=== PATIENT | female | born 1955 | race Caucasian/White ===

== ENCOUNTER → 2019-07-24 10:33 | Outpatient (BNVA) | payer OTHER, SELFPAY | PROVIDERS: Family Provider Family Medicine; PCP Family Medicine; Visit Provider Family Medicine | DX: E11.65 Type 2 diabetes mellitus with hyperglycemia (principal); E03.9 Hypothyroidism, unspecified; Z79.4 Long term (current) use of insulin; F32.9 Major depressive disorder, single episode, unspecified | CPT/HCPCS: 36415; 80053; 80061; 83036; 84439; 84443; 85025 ==

== ENCOUNTER → 2019-11-12 09:30 | Outpatient (BNVA) | payer OTHER, SELFPAY | PROVIDERS: Family Provider Family Medicine; PCP Family Medicine; Visit Provider Family Medicine | DX: E11.9 Type 2 diabetes mellitus without complications (principal) | CPT/HCPCS: 80061; 83036 ==

== ENCOUNTER → 2020-03-31 13:55 | Outpatient (BNVA) | payer OTHER, SELFPAY | PROVIDERS: Family Provider Family Medicine; PCP Family Medicine; Visit Provider Family Medicine | DX: E03.9 Hypothyroidism, unspecified (principal); E11.9 Type 2 diabetes mellitus without complications; E78.5 Hyperlipidemia, unspecified | CPT/HCPCS: 36415; 80053; 80061; 83036; 84439; 84443; 85025 ==

== ENCOUNTER → 2020-10-17 14:03 | Outpatient (BNVA) | payer OTHER, SELFPAY | PROVIDERS: Family Provider Family Medicine; PCP Family Medicine; Visit Provider Nurse Practitioner Family | DX: E11.65 Type 2 diabetes mellitus with hyperglycemia (principal); R30.0 Dysuria | CPT/HCPCS: 81000; 83036 ==

== ENCOUNTER → 2021-01-13 11:33 | Outpatient (BNVA) | payer MEDICARE, SELFPAY | PROVIDERS: Family Provider Family Medicine; PCP Family Medicine; Visit Provider Nurse Practitioner Family | DX: R30.0 Dysuria (principal); R10.9 Unspecified abdominal pain; Z12.11 Encounter for screening for malignant neoplasm of colon | CPT/HCPCS: 80053; 81000; 85025 ==

== ENCOUNTER → 2021-02-10 08:48 | Outpatient (BNVA) | payer MEDICARE, SELFPAY | PROVIDERS: Family Provider Family Medicine; PCP Family Medicine; Visit Provider Internal Medicine | DX: Z80.0 Family history of malignant neoplasm of digestive organs (principal); Z20.822 Contact with and (suspected) exposure to COVID-19 | CPT/HCPCS: 87635 ==

== ENCOUNTER 2021-02-16 08:36 | Day surgery (SDC) | payer MEDICARE, SELFPAY ==
[2021-02-12 14:19] VITALS: BMI 35.4
[2021-02-16 09:15] VITALS: BP 144/81; PULSE 79; RESP 18; TEMP 36.3; O2SAT 94
[2021-02-16] MEDS: sodium chloride 0.9% 1,000 ML 30 ML IV (09:36)
--- NOTE | 2021-02-16 09:40 | W.PM.OPSFHP ---
Same Day Surgery H&P Indication for Procedure/HPI DATE OF PROCEDURE: February 16, 2021 CHIEF COMPLAINT/INDICATIONFOR SURGICAL PROCEDURE: Screening PREOP DIAGNOSIS: FH colon cancer PLANNED PROCEDRUE: Operation Date: 02/16/21 09:30 Proposed Procedures p Colonoscopy g0105 z80.0(Not Applicable) - Paul Funes MD Medications/Allergies* Home Medications Medication Instructions Recorded Confirmed Type clobetasol 0.05 % topical cream 1 applic TOPICAL BID 07/23/19 02/12/21 History atenolol 25 mg PO DAILY 02/12/21 02/16/21 History citalopram [Celexa] 40 mg PO DAILY 02/12/21 02/12/21 History fluconazole [Diflucan] 150 mg PO .COMPLEX PRN 02/12/21 02/12/21 History glimepiride 4 mg PO DAILY 02/12/21 02/12/21 History lisinopril-hydrochlorothiazide 1 tab PO DAILY 02/12/21 02/12/21 History metformin See Rx Instructions .ROUTE .COMPLEX 02/12/21 02/16/21 History Allergies/Adverse Reactions Allergy/AdvReac Type Severity Reaction Status Date / Time Sbrxqeb-Zfq-Ylh Reductase AdvReac Severe ADR-Muscle Verified 02/12/21 14:21 Inhibitor Pain Current Medications: Generic Name Dose Route Start Last Admin Trade Name Freq PRN Reason Stop Dose Admin Sodium Chloride 1,000 mls @ 30 mls/hr 02/16/21 08:45 02/16/21 09:36 Sodium Chloride 0.9% IV 02/17/21 08:44 30 mls/hr .Q24H GUY Administration Pertinent History/Comorbid Conditions* Medical History (Updated 02/05/21 @ 14:30 by Paul Funes MD) Depressed Diabetes Hypothyroid Family History (Updated 03/31/20 @ 08:59 by Roz Xavier LPN) Mother CAD (coronary artery disease) Mother Son Cancer Mother Social History Smoking and tobacco status: former smoker Quit status (tobacco): has quit using tobacco Alcohol intake: current Alcohol intake frequency: holidays/special occasions only Pertinent Exam Findings alert, oriented x 3, clear to auscultation bilaterally, regular rate & rhythm, operative site marked and procedure specific exam findings Recommendations Surgery/Procedure today Coding Level of Care Code Acute Emergency Room Nurse for Margaretg Demetris
[2021-02-16 09:42] LABS: Glucose Point of Care 305 mg/dL (70-110)
--- NOTE | 2021-02-16 10:03 | ANES.PREANE2 ---
Pre-Anesthetic Assessment Pre-Anesthetic Assessment: Height/Weight: Height 1.6 m Weight 90.718 kg Temp Pulse Resp BP Pulse Ox 97.4 F L 79 18 144/81 94 02/16/21 09:15 02/16/21 09:15 02/16/21 09:15 02/16/21 09:15 02/16/21 09:15 Preop Diagnosis: FH colon cancer Proposed Procedure: Operation Date: 02/16/21 09:30 Proposed Procedures p Colonoscopy g0105 z80.0(Not Applicable) - Paul Funes MD Was Beta Warren taken within 24 hours: Yes Was Clonidine taken within 24 hours: N/A Last intake: Intake Last Liquid Date 02/15/21 Last Liquid Time 21:00 Last Solid Date 02/14/21 Last Solid Time 21:00 Social: Social History: No alcohol and No tobacco Exam: Pre-Anes Outpt Exam: alert, oriented x 3, clear to auscultation bilaterally and regular rate & rhythm Airway: Submandibular: WNL Cervical ROM: WNL MP: 2 Dentition: Full CV/HEM: CV/HEM: HTN Metabolic: Metabolic: DM and Thyroid Anesthetic Plan: ASA status: 3 Anesthesia: MAC Risk of > 500 ml blood loss (7ml/kg in children): No Meds/Allergies Current Medications: Current Medications Generic Name Dose Route Start Last Admin Trade Name Freq PRN Reason Stop Dose Admin Sodium Chloride 1,000 mls @ 30 ml s/hr 02/16/21 08:45 02/16/21 09:36 Sodium Chloride 0.9% IV 02/17/21 08:44 30 mls/hr .Q24H GUY Administration PFSH Anesthesia PFSH: Medical History (Updated 02/05/21 @ 14:30 by Paul Funes MD) Depressed Diabetes Hypothyroid Family History Mother Cancer CAD (coronary artery disease) Son CAD (coronary artery disease) Social History Smoking and tobacco status: former smoker Quit status (tobacco): has quit using tobacco Alcohol intake: current Alcohol intake frequency: holidays/special occasions only Data Anesthesia Other Labs: Laboratory Results - last 48 hr 02/16/21 09:35 POC Glucose 305 H Cardiac Studies: No Data to Display
[2021-02-16 10:18] VITALS: BP 110/60; PULSE 74; RESP 16; TEMP 36.4; O2SAT 92
[2021-02-16 10:26] VITALS: BP 114/63; PULSE 76; RESP 18; O2SAT 93
--- NOTE | 2021-02-16 11:15 | ANE.PACU2 ---
Documented by User: Andreia Gilliam CRNA 02/16/21 11:16 Inpatient post-anesthesia follow up: Airway intact: Yes Vital signs: Temperature 97.5 F Pulse Rate 76 Respiratory Rate 18 Blood Pressure 114/63 Pulse Oximetry 93 Oxygen Delivery Me thod Room Air Oxygen Flow Rate 3 Fraction of Inspir ed Oxygen Hydration adequate: Yes Nausea and vomiting: No Mental status: Baseline
--- NOTE | 2021-02-16 12:56 | ANE.PACU2 ---
Inpatient post-anesthesia follow up: Airway intact: Yes Vital signs: Temperature 97.5 F Pulse Rate 76 Respiratory Rate 18 Blood Pressure 114/63 Pulse Oximetry 93 Oxygen Delivery Me thod Room Air Oxygen Flow Rate 3 Fraction of Inspir ed Oxygen Hydration adequate: Yes Nausea and vomiting: No Pain level: 1 Mental status: Baseline
== END 2021-02-16 10:45 | disposition home or self-care (01) ==
PROVIDERS: PCP Family Medicine; Visit Provider Internal Medicine
PROC: 0DJD8ZZ Inspection of Lower Intestinal Tract, Via Natural or Artificial Opening Endoscopic (ICD-10-PCS; CPT 45378; principal; 2021-02-16 09:30)
DX: Z12.11 Encounter for screening for malignant neoplasm of colon (principal); Z80.0 Family history of malignant neoplasm of digestive organs; K57.30 Diverticulosis of large intestine without perforation or abscess without bleeding; E11.9 Type 2 diabetes mellitus without complications; Z79.84 Long term (current) use of oral hypoglycemic drugs; E03.9 Hypothyroidism, unspecified; Z82.49 Family history of ischemic heart disease and other diseases of the circulatory system; Z87.891 Personal history of nicotine dependence; I10 Essential (primary) hypertension
CPT/HCPCS: 36416; 45378; 82962; 96360; J2704; J7030

== ENCOUNTER → 2021-03-26 13:31 | Outpatient (BNVA) | payer MEDICARE, SELFPAY | PROVIDERS: PCP Family Medicine; Visit Provider Obstetrics & Gynecology | DX: Z01.419 Encounter for gynecological examination (general) (routine) without abnormal findings (principal) | CPT/HCPCS: 88175 ==

== ENCOUNTER → 2021-04-13 11:17 | Outpatient (BNVA) | payer MEDICARE, SELFPAY | PROVIDERS: PCP Family Medicine; Visit Provider Obstetrics & Gynecology | DX: R87.811 Vaginal high risk human papillomavirus (HPV) DNA test positive (principal) | CPT/HCPCS: 88305 ==

== ENCOUNTER 2021-06-09 07:03 | Outpatient (CLI) | payer MEDICARE, SELFPAY ==
[2021-06-09 07:09] VITALS: BMI 37.0
--- NOTE | 2021-06-09 07:10 | NMCV_ITS ---
NM andrew perf SPECT r/s* [id number] Lizabeth Curry Age: 66 Gender: F : 1955 Exam Date: 06/09/2021 08:29 Ordering Phys: Krishna Anand M.D ([email or web address]) Technologist: MERE Hernandez Exam Location: [facility] Indications: CHEST PAIN STRESS TEST Please see separate stress test report [facility] for full findings IMAGE PROTOCOL Rest/Stress 1 Lexiscan Day Radiopharmaceutical Dose (mCi) Administration Site Administered by Rest: Tc-99m 10.6 IV MERE Hernandez Sestamibi Stress:Tc-99m 32.4 IV MERE Hernandez Sestamibi Rest: 09-Jun-2021 60 Discovery 630 Stress: 09-Jun-2021 30 Discovery 630 0.4mg Lexiscan. Images obtained in supine and prone position. SPECT RESULTS Technical Quality: Excellent Raw Data Analysis: Normal, Breast attenuation Image Corrections: No attenuation or motion correction applied Summed Stress Score: 1 Summed Rest Score: 2 Summed Difference Score: 1 PERFUSION FINDINGS There is a small in size partially reversible defect in the apical inferior wall. This likely represents small prior infarct with some shirley-infarct ischemia. FUNCTIONAL RESULTS (calculated via Gated SPECT) Stress Image LV EF (%): 77 Stress EDV (mL):90 TID: 1.26 Stress ESV (mL):21 FUNCTIONAL FINDINGS: There is normal left ventricular systolic function. IMPRESSIONS 1. Abnormal myocardial perfusion imaging with small sized, partially reversible perfusion defect of apical inferior wall. This is consistent with prior infarct with small area of shirley-infarct ischemia. 2. LV systolic function is normal. 3. Elevated TID ratio of 1.26 that could represent subendocardial ischemia Krishna Anand MD (Electronically Signed) Final Date: 11 June 2021 14:00 S
--- NOTE | 2021-06-09 07:10 | ECG_ITS ---
[facility] Test Date: 2021-06-09 Pat Name: Lizabeth Curry Department: Room: Gender: Female Civil Engineering Professional: : 1955 Requested By: Krishna Anand Order Number: [id number] Dylan MD: Krishna Anand M.D. Interpretive Statements NAME OF STUDY: LEXISCAN SESTAMIBI STRESS TEST INDICATION: [Chest Pain; Shortness of Breath] Procedure: At the baseline, the blood pressure was 154/78 mmHg with a heart rate of 65 bpm. The electrocardiogram showed normal sinus rhythm, normal axis with normal ST and T's. The Lexiscan was infused over a period of 20 seconds. A total of 0.4 mg of Lexiscan was infused. The stress phase was continued for a total of 5 minutes. Heart rate was at the end of stress phase was 85 bpm and blood pressure was not recorded. The EKG at the peak infusion revealed since normal sinus rhythm with no significant ST-T wave changes. Sestamibi was injected 20 seconds after the Lexiscan infusion. Blood pressure at the end of recovery phase was 164/78 mmHg with a heart rate of 79 bpm. Conclusion: 1. Normal EKG response to Lexiscan infusion 2. No Lexiscan induced chest pain or cardiac arrhythmia. 3. Normal blood pressure and heart rate response. 4. Sestamibi/sestamibi perfusion scan pending; see separate report. Electronically Signed On 07-04-2021 11:58:14 TRAVELING OPERATOR by Krishna Anand M.D. [id number]
[2021-06-09] MEDS: regadenoson 0.4 Mg/5 ml Syringe IVP (09:13)
[2021-06-09 09:37] VITALS: BP 164/78; PULSE 79
--- NOTE | 2021-06-09 11:45 | USCV_ITS ---
Lizabeth Curry Age: 66 Gender: F : 1955 Exam Date: 06/09/2021 10:36 Ordering Phys: Krishna Anand M.D ([email or web address]) Technologist: AMAURY Exam Location: [facility] [place] Indication: Chest pain BP: 128 / 64 HR: 66 Rhythm: Sinus Technical Quality: Adequate MEASUREMENTS (Male / Female) Normal Values 2D ECHO LV Diastolic Diameter PLAX 4.7 cm 4.2 - 5.9 / 3.9 - 5.3 cm LV Systolic Diameter PLAX 3.0 cm IVS Diastolic Thickness 1.0 cm 0.6 - 1.0 / 0.6 - 0.9 cm IVS Systolic Thickness 1.5 cm LVPW Diastolic Thickness 1.2 cm 0.6 - 1.0 / 0.6 - 0.9 cm LVPW Systolic Thickness 1.5 cm LVOT Diameter 2.0 cm LV Ejection Fraction 2D Teich 64.8 % LV Ejection Fraction MOD 2C 75.6 % LV Ejection Fraction 2C AL 75.3 % LA Diameter 3.1 cm LA Width 2.9 cm LA Height 4.4 cm RA Width 3.3 cm RA Height 3.6 cm Aorta at Sinotubular Diameter 2.4 cm M-MODE Aortic Annulus Diameter 3.3 cm LA Ao Ratio MM 1.0 MV E Point Septal Separation 0.3 cm DOPPLER AV Peak Velocity 97.0 cm/s LVOT Peak Velocity 97.0 cm/s AV Area Cont Eq vti 2.9 cm squared AV Area Cont Eq pk 3.2 cm squared MV Area PHT 3.3 cm squared Mitral E to A Ratio 0.8 MV E' Velocity 32.5 cm/s Mitral E to MV E' Ratio 9.5 Mitral E to LV E' Lateral Ratio 8.4 Mitral E to LV E' Septal Ratio 11.2 TR Peak Velocity 187.0 cm/s TR Peak Gradient 14.0 mmHg TV Peak E Velocity 49.0 cm/s PV Peak Velocity 77.0 cm/s RV Acceleration Time 0.1 s RV Ejection Time 0.3 s RV AcT/ET 0.5 FINDINGS Left Ventricle Technically limited quality echocardiogram because of poor ultrasonic windows. LV systolic function is normal with EF of 55 to 60%. No regional wall motion abnormalities are seen. Grade 1 diastolic dysfunction. Right Ventricle The right ventricle is normal in size and function. Right Atrium The right atrium is normal in size. Left Atrium The left atrium is normal in size. Mitral Valve Structurally normal mitral valve without significant stenosis or prolapse. There is trace mitral regurgitation. Aortic Valve Structurally normal aortic valve without significant sclerosis or stenosis. There is no aortic regurgitation. Tricuspid Valve Structurally normal tricuspid valve without significant stenosis or regurgitation. Insufficient TR jet to calculate RVSP Pulmonic Valve Structurally normal pulmonic valve without significant stenosis. There is no pulmonic regurgitation. Pericardium Normal pericardium without effusion. Aorta Normal ascending aorta dimension. CONCLUSIONS Technically limited quality echocardiogram because of poor ultrasonic windows. LV systolic function is normal with EF of 55 to 60%. Grade 1 diastolic dysfunction. Trace mitral regurgitation No comparison studies are available Krishna Anand MD (Electronically Signed) Final Date: 21 June 2021 18:33 S
== END 2021-06-09 07:04 | disposition home or self-care (01) ==
LOC: CDL 07:06
PROVIDERS: PCP Family Medicine; Visit Provider Internal Medicine
DX: R07.9 Chest pain, unspecified (principal); R06.02 Shortness of breath
CPT/HCPCS: 78452; 93017; 93306; A9500; J2785

== ENCOUNTER → 2021-07-02 11:08 | Outpatient (BNVA) | payer MEDICARE, SELFPAY | PROVIDERS: PCP Family Medicine; Visit Provider Nurse Practitioner Family | DX: E11.9 Type 2 diabetes mellitus without complications (principal) | CPT/HCPCS: 83036 ==

== ENCOUNTER → 2021-07-07 16:00 | Outpatient (BNVA) | payer MEDICARE, SELFPAY | PROVIDERS: PCP Family Medicine; Visit Provider Internal Medicine | DX: R07.9 Chest pain, unspecified (principal); R94.39 Abnormal result of other cardiovascular function study; I10 Essential (primary) hypertension; E78.5 Hyperlipidemia, unspecified; Z01.812 Encounter for preprocedural laboratory examination | CPT/HCPCS: 80048; 85025; 85610; 87635 ==

== ENCOUNTER 2021-07-09 05:41 | Outpatient (CLI) | payer MEDICARE, SELFPAY ==
[2021-07-09] VITALS (11 sets, daily range): BP systolic 90–144; BP diastolic 61–85; PULSE 61–67; RESP 12–18; TEMP 36.3; O2SAT 94–98; BMI 37.5
--- NOTE | 2021-07-09 06:00 | XACV_ITS ---
Ht: 160 cm Wt: 96 kg BSA: 2.11 m2 Gender: Female : 1955 Any Known Allergies: Other Exam Priority: Routine Procedure(s): Procedure Description: Diagnostic procedure Procedure Description: Left Heart Catheterization Procedure Description: Left ventriculography Procedure Description: Coronary Angiography Diagnostic Cath Status: Elective Diagnostic Findings * INDICATION: Worsening angina/ abnormal stress test with TID ratio of 1.26. * Left Main has no disease. * Circumflex has no disease. * Mid Left Anterior Descending: minimal 30% stenosis, DAVIDE: 3 flow. * Distal Right Coronary Artery: minimal 30% stenosis, DAVIDE: 3 flow. * Coronary angiography shows right dominance. Conclusions 1. Nonobstructive coronary artery disease. 2. Normal left ventricular systolic function. Ejection fraction of 55%. Recommendations * Aggressive risk factor modification. * Outpatient cardiology follow-up in 7-10 days. Interventional RX Recommendation: medical therapy and/or counseling Diagnostic RX Recommendation: medical therapy and/or counseling Anticoagulation: Heparin Ventriculography Ejection Fraction: 55.0 % Pressures Phase:Rest AO : 119 / 74 ( 97 ) @ 5:31:00 AM 142 / 61 ( 106 ) @ 5:39:00 AM 139 / 52 ( 89 ) @ 5:39:00 AM LV : 143 / -4 / 23 @ 5:38:00 AM 148 / 6 / 30 @ 5:39:00 AM 145 / 12 / 35 @ 5:39:00 AM Valves Phase:DefaultPhase AV : 1.0 @ 7:45:26 AM AV Mean Gradient: 0.0 @ 7:45:26 AM Clinical Evaluation EBL: 5mL-10mL Procedural Details Procedure Consent Obtained. Pre-Procedure Time Out. Identified patient by full name and date of as verbalized by the patient/guarantor. Does the consent match the physician's order: Yes. Accurate & Complete Informed Consent: Yes. Inpatient/Outpatient History & Physical on Chart: Yes. If H&P is completed, is and addenduem needed: No; If yes, is the addendum complete: N/A. Visualize and Verify Site with Patient/Guarantor: N/A. Relevant Radiology Images available: N/A. Pre-op teaching completed and patient verbalized understanding. The risks, benefits, and alternatives of sedation and/or procedure were discussed by physician. The patient agrees to continue. Procedure started. [facility] Clinical Fraility Score: 3: Managing Well. Drywall Application Supervisor Indications: abnormal stress test. Chest Pain Symptom Assessment: Typical Angina Symptoms. Cardiovascular Instability: No. Correct patient, site and procedure confirmed by cath team. PERRLA. Strong, equal hand environmental protection inspector bilaterally. Lungs clear x 5 lobes. IV Site on Arrival: 20 gauge in the right anticubital. IV Fluids: 0.9% NaCl at KVO. 0 mL infused prior to high density press laborer. Pre Procedural Pulses: bilateral dorsalis pedis was 3+. Pre Procedural Pulses: bilateral posterior tibial was 3+. Pre Procedural Pulses: bilateral radial was 3+. Oxygen started at 2liters/min via nasal canula. right groin was prepped with chloroprep then draped in the usual sterile fashion. right radial was prepped with chloroprep then draped in the usual sterile fashion. Baseline sample Acquired. HR: 52 BPM. Physician arrived. Equipment: 6F - Radial. Cardiac Cath Pack. ACIST Manifold Kit Model BT 2000. Heparinized Saline (2 units/mL), 1000 mL bag. Physician scrubbed in. Immediate Pre-Procedure Time Out. Correct Patient: Yes; Correct Procedure: Yes; Correct Site: Yes; Correct Patient Position: Yes; Correct Supplies: Yes; Dried Flammable Prep: Yes; Blood Products Available: N/A;. Lidocaine 1% infiltrated to the right radial. Arterial access obtained. A 5 hungarian TIG catheter in over wire. Multiple views taken of right coronary artery. Catheter redirected to the LCA. Multiple views taken of left coronary artery. Catheter removed over the exchange wire. EDP Sample taken: LV 143/-5,23; HR: 68 BPM; SpO2: 97%. LV gram performed in HALL @ 10 mL/second for a total of 30 mL. EDP Sample taken: LV 148/6,30; HR: 79 BPM; SpO2: 92%. Pullback taken: LV 145/12,35; AO 142/61(106); Mean: 0mmHg, Peak to Peak: 1mmHg, SEP: 7sec/min; HR: 72 BPM; SpO2: 91%. Catheter removed over the exchange wire. Physician scrubbed out to review images. A TR Band was successful obtaining hemostatsis at the Right Radial artery insertion site. TR band placed. Hemostasis obtained. Post Procedure: Pulses reassessed and unchanged. PERRLA. Strong, equal hand environmental protection inspector bilaterally. No VTE prophylaxis required. Medication's Wasted: Lidocaine 1% = 18 mL. Medication's Wasted: Nitro = 49.8 mg. Medication's Wasted: Heparin = 1000 units. Total IV fluids: 50 mL. Contrast type used: Omnipaque 300 mgI/mL, 500 mL bottle. Post-op diagnosis: non obstructive CAD. Complications: none. Estimated blood loss: 5mL-10mL. Responsiveness - Normal response to verbal stimuli; alert and oriented, PERRLA. Airway - Unaffected, no intervention required; spontaneous ventilation. Circulation: W/N/L, pulses unchanged. Nausea/Vomiting: No. Procedure completed. Patient transferred by wheelchair to CPRU. Vital chart was stopped. Access Site Site: Right Radial artery Sheath Size: 6 Fr Hemostasis Method: TR Band Hemostasis Success: Successful Procedure Medications Start: 7:22 AM Stop: 7:22 AM Medication: Versed Amount: 1 mg Route: I.V. Start: 7:22 AM Stop: 7:22 AM Medication: Fentanyl Amount: 50 mcg Route: I.V. Start: 7:27 AM Stop: 7:27 AM Medication: Nitrogylcerin Amount: 200 mcg Route: I.A. I, the attending physician, have reviewed and verified all procedure medications. Yes, all medications given per verbal order History/Risk Factors Hypertension: Yes Dyslipidemia: No Peripheral Arterial Disease (PAD): No Myocardial Infarction (AZ): No Obesity: Yes Renal Disease: No Tobacco Use: Current/Recent(w/in 1 year) Prior Interventions PCI: No CABG: No Valve Surgery: No Report Signatures Finalized by Krishna Anand MD on 07/09/2021 07:53 AM
[2021-07-09] MEDS: diphenhydrAMINE 50 mg Capsule PO (06:27)
[2021-07-09 06:46] LABS: SARS Covid-2 Antigen Negative (Negative)
--- NOTE | 2021-07-09 07:19 | W.PM.OPSUD ---
Surgery/Procedure H&P Update DATE OF PROCEDURE: July 09, 2021 DATE H&P PERFORMED: 07/07/21 H&P UPDATE INFORMATION: I have reviewed H&P completed within last 30 days, I have examined patient prior to procedure and No changes to prior documentation PREOP DIAGNOSIS: Worsening angina/ Abnormal stress test PRIMARY INDICATION FOR PROCEDURE: Worsening angina/ Abnormal stress test PLANNED PROCEDURE: Operation Date: 07/09/21 07:00 Proposed Procedures p Cardiac Catheterization(Left) - Krishna Anand M.D Possible Percutaneous coronary intervention PATIENT REASSESSED PRIOR TO SEDATION, WITH NO CHANGE NOTED: Yes PHYSICAL EXAM: alert, oriented x 3, clear to auscultation bilaterally and regular rate & rhythm AIRWAY EVAL/ANESTHESIA PLAN: ASA III, Monitored Anesthesia, Local Anesthesia, Risks, benefits & alternatives of sedation and/or procedure discussed and Patient agrees to continue as planned
--- NOTE | 2021-07-09 07:45 | SUR.PHASEII ---
Recieved the patient back from the cardiac cath lab radiology technologist s/p diagnostic [facility] via wheelchair. Patient ambulated to the bed with minimal assistance. Patient A & O x3, drowsy, but awakens to verbal stimuli easily then nods back to sleep. hall monitor placed and vital signs obtained. TR band intact to the right wrist with no bleeding or hematoma noted. Post angiogram radial activity instructions verbally given to the patient and her . They verbalized their understanding. Spouse at bedside. Will continue to monitor and plan for DC home around 1100.
--- NOTE | 2021-07-09 09:00 | SUR.PHASEII ---
Letting the air out of the TR band per protocol. No other assessment changes noted at this time.
--- NOTE | 2021-07-09 10:00 | SUR.PHASEII ---
TR BAND OFF PER PROTOCOL. NO BLEEDING OR HEMATOMA NOTED. SITE CLEANSED WITH WARM WATER AND PATTED DRY. A LARGE BANDAID WAS APPLIED TO THE SITE AND LOOSELY SECURED WITH COBAN. RADIAL ACTIVITY INSTRUCTIONS WERE AGAIN VERBALLY GIVEN TO THE PATIENT AND HER SPOUSE WITH THERE UNDERSTANDING VERBALIZED. NO OTHER ASSESSMENT CHANGES NOTED. PLAN FOR DC HOME AT 1100.
== END 2021-07-09 05:42 | disposition home or self-care (01) ==
PROVIDERS: PCP Family Medicine; Visit Provider Internal Medicine
DX: I25.10 Atherosclerotic heart disease of native coronary artery without angina pectoris (principal); I10 Essential (primary) hypertension; E66.9 Obesity, unspecified; Z68.37 Body mass index [BMI] 37.0-37.9, adult; E11.9 Type 2 diabetes mellitus without complications; Z82.49 Family history of ischemic heart disease and other diseases of the circulatory system; Z79.84 Long term (current) use of oral hypoglycemic drugs; F32.9 Major depressive disorder, single episode, unspecified; E03.9 Hypothyroidism, unspecified; Z90.49 Acquired absence of other specified parts of digestive tract; Z87.891 Personal history of nicotine dependence
CPT/HCPCS: 36415; 87426; 93452; C1769; C1887; C1894; J1644; J2250; J3010; J3490; J7030; Q0163; Q9967

== ENCOUNTER → 2021-07-15 16:00 | Outpatient (BNVA) | payer MEDICARE, SELFPAY | PROVIDERS: PCP Family Medicine; Visit Provider Nurse Practitioner Family | DX: I10 Essential (primary) hypertension (principal) | CPT/HCPCS: 80048 ==

== ENCOUNTER → 2021-10-08 14:38 | Outpatient (BNVA) | payer MEDICARE, SELFPAY | PROVIDERS: PCP Family Medicine; Visit Provider Internal Medicine | DX: Z09 Encounter for follow-up examination after completed treatment for conditions other than malignant neoplasm (principal); Z87.891 Personal history of nicotine dependence; I10 Essential (primary) hypertension | CPT/HCPCS: 99213 ==

== ENCOUNTER → 2021-10-15 09:02 | Outpatient (BNVA) | payer MEDICARE, SELFPAY | PROVIDERS: PCP Family Medicine; Visit Provider Family Medicine | DX: I10 Essential (primary) hypertension (principal); E11.65 Type 2 diabetes mellitus with hyperglycemia; E03.9 Hypothyroidism, unspecified | CPT/HCPCS: 80053; 83036; 84439; 84443 ==

== ENCOUNTER → 2021-10-19 09:51 | Outpatient (BNVA) | payer MEDICARE, SELFPAY | PROVIDERS: PCP Family Medicine; Visit Provider Obstetrics & Gynecology | DX: Z01.419 Encounter for gynecological examination (general) (routine) without abnormal findings (principal); R87.811 Vaginal high risk human papillomavirus (HPV) DNA test positive | CPT/HCPCS: 88175 ==

== ENCOUNTER → 2021-11-25 10:04 | Outpatient (BNVA) | payer MEDICARE, SELFPAY | PROVIDERS: PCP Family Medicine; Visit Provider Family Medicine | DX: E11.9 Type 2 diabetes mellitus without complications (principal); I10 Essential (primary) hypertension; E03.9 Hypothyroidism, unspecified | CPT/HCPCS: 83036 ==

== ENCOUNTER → 2022-02-24 09:18 | Outpatient (BNVA) | payer MEDICARE, SELFPAY | PROVIDERS: PCP Family Medicine; Visit Provider Family Medicine | DX: E11.65 Type 2 diabetes mellitus with hyperglycemia (principal); E78.5 Hyperlipidemia, unspecified; E03.9 Hypothyroidism, unspecified | CPT/HCPCS: 82962; 83036 ==

== ENCOUNTER → 2022-02-26 10:33 | Outpatient (BNVA) | payer MEDICARE, SELFPAY | PROVIDERS: PCP Family Medicine; Visit Provider Family Medicine | DX: E78.5 Hyperlipidemia, unspecified (principal); I10 Essential (primary) hypertension; R83.0 Abnormal level of enzymes in cerebrospinal fluid | CPT/HCPCS: 80053 ==

== ENCOUNTER → 2022-03-03 12:15 | Outpatient (BNVA) | payer MEDICARE, SELFPAY | PROVIDERS: PCP Family Medicine; Visit Provider Family Medicine | DX: E87.0 Hyperosmolality and hypernatremia (principal) | CPT/HCPCS: 80053 ==

== ENCOUNTER → 2022-03-17 10:15 | Outpatient (BNVA) | payer MEDICARE, SELFPAY | PROVIDERS: PCP Family Medicine; Referring Provider Family Medicine; Visit Provider Internal Medicine | DX: E03.9 Hypothyroidism, unspecified (principal); E11.65 Type 2 diabetes mellitus with hyperglycemia; F32.9 Major depressive disorder, single episode, unspecified; Z79.4 Long term (current) use of insulin; Z79.84 Long term (current) use of oral hypoglycemic drugs | CPT/HCPCS: 99204 ==

== ENCOUNTER → 2022-03-25 08:59 | Outpatient (BNVA) | payer MEDICARE, SELFPAY | PROVIDERS: PCP Family Medicine; Visit Provider Internal Medicine | DX: E78.5 Hyperlipidemia, unspecified (principal); E03.9 Hypothyroidism, unspecified | CPT/HCPCS: 80061; 82310; 83970 ==

== ENCOUNTER → 2022-03-30 12:50 | Outpatient (BNVA) | payer MEDICARE, SELFPAY | PROVIDERS: PCP Family Medicine; Visit Provider Internal Medicine | DX: E11.65 Type 2 diabetes mellitus with hyperglycemia (principal); E03.9 Hypothyroidism, unspecified; E78.5 Hyperlipidemia, unspecified; F32.9 Major depressive disorder, single episode, unspecified; Z79.4 Long term (current) use of insulin | CPT/HCPCS: 99214 ==

== ENCOUNTER → 2022-10-05 08:56 | Outpatient (BNVA) | payer MEDICARE, SELFPAY | PROVIDERS: PCP Family Medicine; Visit Provider Internal Medicine | DX: E11.9 Type 2 diabetes mellitus without complications (principal); E03.9 Hypothyroidism, unspecified; E78.5 Hyperlipidemia, unspecified | CPT/HCPCS: 80061; 83036; 84439; 84443; 86376; 86800 ==

== ENCOUNTER → 2022-10-07 13:09 | Outpatient (BNVA) | payer MEDICARE, SELFPAY | PROVIDERS: PCP Family Medicine; Visit Provider Internal Medicine | DX: I10 Essential (primary) hypertension (principal); E11.65 Type 2 diabetes mellitus with hyperglycemia; E03.9 Hypothyroidism, unspecified; Z79.82 Long term (current) use of aspirin; Z79.4 Long term (current) use of insulin | CPT/HCPCS: 99213 ==

== ENCOUNTER → 2022-10-26 10:35 | Outpatient (BNVA) | payer MEDICARE, SELFPAY | PROVIDERS: PCP Family Medicine; Visit Provider Internal Medicine | DX: E11.65 Type 2 diabetes mellitus with hyperglycemia (principal); E03.9 Hypothyroidism, unspecified; Z79.4 Long term (current) use of insulin; Z79.890 Hormone replacement therapy; Z79.899 Other long term (current) drug therapy | CPT/HCPCS: 99214 ==

== ENCOUNTER → 2022-11-03 08:56 | Outpatient (BNVA) | payer MEDICARE, SELFPAY | PROVIDERS: PCP Family Medicine; Visit Provider Internal Medicine | DX: E03.9 Hypothyroidism, unspecified (principal) | CPT/HCPCS: 84439; 84443 ==

== ENCOUNTER → 2023-02-18 10:16 | Outpatient (BNVA) | payer MEDICARE, SELFPAY | PROVIDERS: PCP Family Medicine; Visit Provider Internal Medicine | DX: E03.9 Hypothyroidism, unspecified (principal); F32.9 Major depressive disorder, single episode, unspecified; E11.65 Type 2 diabetes mellitus with hyperglycemia; Z79.890 Hormone replacement therapy | CPT/HCPCS: 99214 ==

== ENCOUNTER → 2023-02-28 16:26 | Outpatient (BNVA) | payer MEDICARE, SELFPAY | PROVIDERS: PCP Family Medicine; Visit Provider Family Medicine | DX: R30.0 Dysuria; Z94.83 Pancreas transplant status; E03.9 Hypothyroidism, unspecified; E11.9 Type 2 diabetes mellitus without complications; F32.9 Major depressive disorder, single episode, unspecified | CPT/HCPCS: 80053; 80061; 81000; 82043; 83036; 84439; 84443 ==

== ENCOUNTER → 2023-06-20 10:57 | Outpatient (BNVA) | payer MEDICARE, SELFPAY | PROVIDERS: PCP Family Medicine; Visit Provider Internal Medicine | DX: E03.9 Hypothyroidism, unspecified (principal); E11.65 Type 2 diabetes mellitus with hyperglycemia; Z79.890 Hormone replacement therapy; Z79.85 Long-term (current) use of injectable non-insulin antidiabetic drugs | CPT/HCPCS: 99214 ==

== ENCOUNTER 2023-06-22 09:58 | Outpatient (CLI) | payer MEDICARE, SELFPAY ==
--- NOTE | 2023-06-22 10:00 | MM_ITS ---
WS: [id number] BILATERAL SCREENING DIGITAL TOMOSYNTHESIS MAMMOGRAM WITH CAD HISTORY: SCREENING COMPARISON: 09/16/2017, 09/02/2016 Bilateral CC and MLO views with tomosynthesis and synthetic mammography submitted. Computer aided det ection analyzed. Breast composition: The breasts are heterogeneously dense, which may obscure small masses. No suspici ous masses, microcalcifications or architectural distortion. Scattered asymmetries and calcifications are stable. IMPRESSION: MM/[place] [id number] BI-RADS: 2-Benign FOLLOW UP: 1 Year Follow-up
== END 2023-06-22 09:59 | disposition home or self-care (01) ==
LOC: MOBLMAM 10:13
PROVIDERS: PCP Family Medicine; Visit Provider Family Medicine
DX: Z12.31 Encounter for screening mammogram for malignant neoplasm of breast (principal)
CPT/HCPCS: 77063; 77067

== ENCOUNTER → 2023-06-28 09:02 | Outpatient (BNVA) | payer MEDICARE, SELFPAY | PROVIDERS: PCP Family Medicine; Visit Provider Internal Medicine | DX: E03.9 Hypothyroidism, unspecified (principal); E11.9 Type 2 diabetes mellitus without complications | CPT/HCPCS: 80053; 80061; 82043; 83036; 84439; 84443 ==

== ENCOUNTER → 2023-12-19 11:14 | Outpatient (BNVA) | payer MEDICARE, SELFPAY | PROVIDERS: PCP Family Medicine; Visit Provider Internal Medicine | DX: Z68.36 Body mass index [BMI] 36.0-36.9, adult (principal); E03.9 Hypothyroidism, unspecified; E11.65 Type 2 diabetes mellitus with hyperglycemia; Z79.899 Other long term (current) drug therapy | CPT/HCPCS: 36415; 80053; 80061; 82044; 82306; 83036; 84439; 84443 ==

== ENCOUNTER → 2024-01-23 13:13 | Outpatient (BNVA) | payer MEDICARE, SELFPAY | PROVIDERS: PCP Family Medicine; Visit Provider Internal Medicine Cardiovascular Disease | DX: E78.5 Hyperlipidemia, unspecified (principal); E11.65 Type 2 diabetes mellitus with hyperglycemia; Z87.891 Personal history of nicotine dependence | CPT/HCPCS: 99213 ==

== ENCOUNTER → 2024-05-23 09:11 | Outpatient (BNVA) | payer MEDICARE, SELFPAY | PROVIDERS: PCP Family Medicine; Visit Provider Nurse Practitioner Family | DX: E03.9 Hypothyroidism, unspecified (principal); E11.65 Type 2 diabetes mellitus with hyperglycemia; E78.5 Hyperlipidemia, unspecified; I10 Essential (primary) hypertension | CPT/HCPCS: 80053; 80061; 82043; 83036; 84443 ==

== ENCOUNTER → 2024-05-30 11:24 | Outpatient (BNVA) | payer MEDICARE, SELFPAY | PROVIDERS: PCP Family Medicine; Visit Provider Internal Medicine | DX: E03.9 Hypothyroidism, unspecified (principal); E11.65 Type 2 diabetes mellitus with hyperglycemia; E55.9 Vitamin D deficiency, unspecified; E78.5 Hyperlipidemia, unspecified; Z79.890 Hormone replacement therapy; Z79.85 Long-term (current) use of injectable non-insulin antidiabetic drugs | CPT/HCPCS: 99214 ==

== ENCOUNTER → 2024-11-19 08:48 | Outpatient (BNVA) | payer MEDICARE, SELFPAY | PROVIDERS: PCP Family Medicine; Visit Provider Internal Medicine | DX: E03.9 Hypothyroidism, unspecified (principal); E55.9 Vitamin D deficiency, unspecified; E11.65 Type 2 diabetes mellitus with hyperglycemia; E78.5 Hyperlipidemia, unspecified; I10 Essential (primary) hypertension | CPT/HCPCS: 80053; 80061; 82043; 82306; 83036; 84439; 84443 ==

== ENCOUNTER → 2024-11-27 11:05 | Outpatient (BNVA) | payer MEDICARE, SELFPAY | PROVIDERS: PCP Family Medicine; Visit Provider Internal Medicine | DX: E03.9 Hypothyroidism, unspecified (principal); E11.65 Type 2 diabetes mellitus with hyperglycemia; E55.9 Vitamin D deficiency, unspecified; E78.5 Hyperlipidemia, unspecified | CPT/HCPCS: 99214 ==

== ENCOUNTER → 2024-12-10 09:00 | Outpatient (BNVA) | payer MEDICARE, SELFPAY | PROVIDERS: PCP Family Medicine; Visit Provider Student in an Organized Health Care Education/Training Program | DX: R19.4 Change in bowel habit (principal) | CPT/HCPCS: 99204 ==

== ENCOUNTER 2025-01-01 10:19 | Day surgery (SDC) | payer MEDICARE, SELFPAY ==
[2025-01-01 10:39] VITALS: BP 123/76; PULSE 71; RESP 18; TEMP 36.8; O2SAT 95; BMI 31.8
[2025-01-01] MEDS: sodium chloride 0.9% 1,000 ML 15 ML IV (10:48)
[2025-01-01 10:54] LABS: Glucose Point of Care 135 mg/dL (70-110)
--- NOTE | 2025-01-01 10:57 | W.PM.OPSUD ---
Surgery/Procedure H&P Update DATE OF PROCEDURE: January 01, 2025 DATE H&P PERFORMED: 12/10/24 H&P UPDATE INFORMATION: I have reviewed H&P completed within last 30 days, I have examined patient prior to procedure and No changes to prior documentation PLANNED PROCEDURE: Operation Date: 01/01/25 11:30 Proposed Procedures p Colonoscopy [id number] G0105, R19.4(Not Applicable) - Giovanni Chong MD
--- NOTE | 2025-01-01 10:57 | W.PM.OPSFHP ---
Same Day Surgery H&P Indication for Procedure/HPI DATE OF PROCEDURE: January 01, 2025 CHIEF COMPLAINT/INDICATIONFOR SURGICAL PROCEDURE: diverticulitis PREOP DIAGNOSIS: diverticulitis PLANNED PROCEDURE: Operation Date: 01/01/25 11:30 Proposed Procedures p Colonoscopy [id number] G0105, R19.4(Not Applicable) - Giovanni Chong MD Medications/Allergies* Home Medications ?Medication ?Instructions ?Recorded ?Confirmed ?Type alirocumab 75 mg/mL subcutaneous 75 mg SUBCUT .[id number] 12/27/24 01/01/25 History pen injector (Praluent Pen) aspirin 81 mg tablet 81 mg PO DAILY 12/27/24 12/27/24 History citalopram 20 mg tablet 40 mg PO DAILY 12/27/24 12/27/24 History levothyroxine 300 mcg tablet See Rx Instructions .Route .COMPLEX 12/27/24 12/27/24 History (Synthroid) lisinopril 20 1 tab PO DAILY 12/27/24 12/27/24 History mg-hydrochlorothiazide 25 mg tablet tirzepatide 15 mg/0.5 mL 15 mg SUBCUT .WEEKLY 12/27/24 12/27/24 History subcutaneous pen injector (Mounjaro) Allergies/Adverse Reactions Allergy/AdvReac Type Severity Reaction Status Date / Time Rxxaczv-WEL-WnG Reductase AdvReac Severe ADR-Muscle Verified 12/27/24 09:05 Inhibitor (Khodegp-Qyw-Ifr Pain Reductase Inhibitor) Current Medications: Generic Name Dose Route Start Last Admin Trade Name Freq PRN Reason Stop Dose Admin Sodium Chloride 1,000 mls @ 15 mls/hr 01/01/25 10:30 01/01/25 10:48 Sodium Chloride 0.9% IV 01/02/25 10:29 15 mls/hr .Q24H PRN Administration COLONOSCOPY FLUIDS Pertinent History/Comorbid Conditions* Medical History (Updated 12/10/24 @ 09:23 by Giovanni Chong MD) Hypertension History of diverticulitis of colon Depressed Diabetes Hypothyroid Surgical History (Updated 03/26/21 @ 12:36 by Josy Loredo MD) History of abdominal hysterectomy History of cholecystectomy History of colon resection Family History (Updated 03/26/21 @ 11:30 by Makayla Michaud LPN) Mother Colon cancer Mother age of dx- 70 Diabetes Mother Sister Brother CAD (coronary artery disease) Mother Son Cancer Mother Father lung and liver age of 62 Hypertension Mother Sister Brother Denies family history of Ovarian cancer Breast cancer Uterine cancer Stroke Social History Smoking and tobacco/nicotine status: unknown if used tobacco/nicotine Quit status (tobacco/nicotine): has quit using Alcohol intake: current Alcohol intake frequency: holidays/special occasions only Substance/Drug Use: never Pertinent Exam Findings alert, oriented x 3, clear to auscultation bilaterally, regular rate & rhythm and procedure specific exam findings abdomen soft, nt, nd Recommendations Risks and benefits of procedure reviewed and Patient/family agree to proceed Surgery/Procedure today Coding Level of Care Code Acute Code for Chg Fwaubrey
--- NOTE | 2025-01-01 11:27 | ANES.PREANE2 ---
Pre-Anesthetic Assessment Height/Weight: Height 1.6 m Weight 81.647 kg Temp Pulse Resp BP Pulse Ox O2 Del Method 98.3 F 71 18 123/76 95 Room Air 01/01/25 10:39 01/01/25 10:39 01/01/25 10:39 01/01/25 10:39 01/01/25 10:39 01/01/25 10:39 Preop Diagnosis: diverticulitis Operation Date: 01/01/25 11:30 Proposed Procedures p Colonoscopy 10767 G0105, R19.4(Not Applicable) - Giovanni Chong MD Familial anesthetic complications: screening Was Beta Warren taken within 24 hours: Yes Was Clonidine taken within 24 hours: N/A Last intake: Intake Last Liquid Date 12/31/24 Last Liquid Time 20:00 Last Solid Date 12/30/24 Last Solid Time 17:00 Social No alcohol and No tobacco Exam alert and oriented x 3 Airway Submandibular: within normal limits Cervical ROM: within normal limits Mallampati: Class IV Dentition: full Pulmonary None reported CV/HEM Hypertension None reported Hepatic None reported GI None reported Metabolic Diabetes Mellitus, Hyperlipidemia and Thyroid Disease [facility] None reported Neuropsych None reported Anesthetic Plan ASA status: 3 Anesthesia: Anesthesia Evaluation and MAC Medications/Allergies Home Medications ?Medication ?Instructions ?Recorded ?Confirmed ?Last Taken ?Type diphenhydramine HCl 25 mg tablet 50 mg (2 x 25 mg) PO TID PRN 11/02/21 12/27/24 Unknown Rx (Benadryl Allergy) allergy symptoms #30 tabs pen needle, diabetic 33 gauge x #400 ea 03/18/22 12/10/24 Unknown Rx 532 (Comfort EZ Pen [place]) flash glucose scanning reader #1 ea 06/01/22 12/10/24 Unknown Rx (FreeStyle Juliane 2 [place]) flash glucose sensor (FreeStyle #4 ea 07/12/23 12/10/24 Unknown Rx Juliane 2 Sensor kit) atenolol 25 mg tablet 25 mg PO BID #180 tabs 11/22/24 12/27/24 01/01/25 08:30 Rx clobetasol 0.05 % topical cream 1 applic topical .COMPLEX #45 grams 11/22/24 12/27/24 12/26/24 Rx fluconazole 150 mg tablet 150 mg PO .COMPLEX PRN itching #10 11/22/24 12/27/24 12/19/24 Rx tabs alirocumab 75 mg/mL subcutaneous 75 mg SUBCUT .[id number] 12/27/24 01/01/25 12/17/24 History pen injector (Praluent Pen) aspirin 81 mg tablet 81 mg PO DAILY 12/27/24 12/27/24 12/26/24 History citalopram 20 mg tablet 40 mg PO DAILY 12/27/24 12/27/24 12/31/24 History levothyroxine 300 mcg tablet See Rx Instructions .Route .COMPLEX 12/27/24 12/27/24 01/01/25 08:30 History (Synthroid) lisinopril 20 1 tab PO DAILY 12/27/24 12/27/24 12/31/24 History mg-hydrochlorothiazide 25 mg tablet tirzepatide 15 mg/0.5 mL 15 mg SUBCUT .WEEKLY 12/27/24 12/27/24 12/17/24 History subcutaneous pen injector (Mounjaro) Allergies Allergy/AdvReac Type Severity Reaction Status Date / Time Evzszgb-JHR-KzS Reductase AdvReac Severe ADR-Muscle Verified 12/27/24 09:05 Inhibitor (Abojdvg-Qig-Rli Pain Reductase Inhibitor) Current Medications Generic Name Dose Route Start Last Admin Trade Name Freq PRN Reason Stop Dose Admin Sodium Chloride 1,000 mls @ 15 mls/hr 01/01/25 10:30 01/01/25 10:48 Sodium Chloride 0.9% IV 01/02/25 10:29 15 mls/hr .Q24H PRN Administration COLONOSCOPY FLUIDS PFSH Anesthesia Medical History Hypertension History of diverticulitis of colon Depressed Diabetes Hypothyroid Surgical History History of abdominal hysterectomy History of cholecystectomy History of colon resection Family History Mother Cancer CAD (coronary artery disease) Colon cancer age of dx- 70 Diabetes Hypertension Son CAD (coronary artery disease) Father Cancer lung and liver age of 62 Sister Diabetes Hypertension Brother Diabetes Hypertension Denies family history of Ovarian cancer Breast cancer Uterine cancer Stroke Social History Smoking and tobacco/nicotine status: unknown if used tobacco/nicotine Quit status (tobacco/nicotine): has quit using Alcohol intake: current Alcohol intake frequency: holidays/special occasions only Substance/Drug Use: never Data Anesthesia Cardiac Studies: Echocardiogram 06/09/21 Sestamibi Stress Test (Cardiology) 06/09/21
[2025-01-01 12:01] VITALS: BP 106/66; PULSE 56; RESP 17; TEMP 36.5; O2SAT 95
[2025-01-01 12:25] VITALS: BP 115/69; PULSE 66; RESP 16; O2SAT 96
--- NOTE | 2025-01-01 12:25 | ANE.PACU2 ---
Inpatient post-anesthesia follow up: Airway intact: Yes Vital signs: Temperature 97.7 F Pulse Rate 66 Respiratory Rate 16 Blood Pressure 115/69 Pulse Oximetry 96 Oxygen Delivery Me thod Room Air Oxygen Flow Rate Fraction of Inspir ed Oxygen Hydration adequate: Yes Nausea and vomiting: No Pain level: 1 Mental status: Baseline
== END 2025-01-01 12:36 | disposition home or self-care (01) ==
PROVIDERS: PCP Family Medicine; Visit Provider Student in an Organized Health Care Education/Training Program
PROC: 0DJD8ZZ Inspection of Lower Intestinal Tract, Via Natural or Artificial Opening Endoscopic (ICD-10-PCS; CPT 45378; principal; 2025-01-01 11:30)
DX: K57.30 Diverticulosis of large intestine without perforation or abscess without bleeding (principal); I10 Essential (primary) hypertension; E11.9 Type 2 diabetes mellitus without complications; E03.9 Hypothyroidism, unspecified; Z90.49 Acquired absence of other specified parts of digestive tract; Z80.0 Family history of malignant neoplasm of digestive organs; Z79.899 Other long term (current) drug therapy; Z79.85 Long-term (current) use of injectable non-insulin antidiabetic drugs; Z79.82 Long term (current) use of aspirin; Z79.890 Hormone replacement therapy
CPT/HCPCS: 36416; 45378; 82962; J2704; J7030

== ENCOUNTER → 2025-01-23 14:42 | Outpatient (BNVA) | payer MEDICARE, SELFPAY | PROVIDERS: PCP Family Medicine; Visit Provider Internal Medicine | DX: I10 Essential (primary) hypertension (principal); E11.9 Type 2 diabetes mellitus without complications; Z79.85 Long-term (current) use of injectable non-insulin antidiabetic drugs; E03.9 Hypothyroidism, unspecified; Z79.82 Long term (current) use of aspirin; Z87.891 Personal history of nicotine dependence | CPT/HCPCS: 99214 ==